=== PATIENT | male | born 1980 | race Caucasian/White ===

== ENCOUNTER 2024-01-16 18:41 | Emergency (ER) | payer MEDICAID ==
[~2024-01-16] VITALS: Ht 193 cm; Wt 150.0 kg
[~2024-01-16 18:41] MED LIST: CEPH-571 PO
[2024-01-16 20:01] LABS: BASOPHILS % (AUTO) 0.5 % (0-1); EOSINOPHILS # (AUTO) 0.4 X10'3 (0-0.9); EOSINOPHILS % (AUTO) 3.9 % (0-6); HEMATOCRIT 41.6 % (42.0-52.0); LYMPHOCYTES % (AUTO) 22.2 % (21-51); MEAN CORPUSCULAR HEMOGLOBIN 30.5 PG (27.0-31.0); MEAN CORPUSCULAR HGB CONC 33.6 g/dL (33.0-36.5); MEAN CORPUSCULAR VOLUME 90.6 FL (78-98); MEAN PLATELET VOLUME 7.7 FL (7.4-10.4); MONOCYTES % (AUTO) 10.7 % (2-12); NEUTROPHILS # (AUTO) 5.8 X10'3 (1.8-7.7); NEUTROPHILS % (AUTO) 62.7 % (42-75); PLATELET COUNT 258 X10'3 (140-440); RED BLOOD COUNT 4.59 X10'6 (4.70-6.10); RED CELL DISTRIBUTION WIDTH 14.2 % (11.5-14.5); WHITE BLOOD COUNT 9.2 X10'3 (4.5-11.0)
[2024-01-16 20:11] LABS: ALBUMIN 3.3 G/DL (3.4-5.0); ANION GAP 8 (8-16); BLOOD UREA NITROGEN 15 MG/DL (7-18); BUN/CREATININE RATIO 13.8 (10.0-20.0); CALCIUM 8.9 MG/DL (8.5-10.1); CHLORIDE 104 MMOL/L (99-107); CREATININE 1.09 MG/DL (0.60-1.10); GLUCOSE 128 MG/DL (70-104); POTASSIUM 3.8 MMOL/L (3.5-5.1); SODIUM 140 MMOL/L (135-145); eCRCL 107 ML/MIN; eGFR 74 ML/MIN
[2024-01-16] MEDS ORDERED: CEPH-585 PO (20:41)
[2024-01-16] MEDS ORDERED: SULF1TAB45 PO (20:41)
[2024-01-16] MEDS: CefTRIAXone 1000mg IM Kit (w/lidocaine diluent) IM ONE (20:50)
[2024-01-16 20:56] VITALS: BP 152/109; PULSE 81; RESP 17; TEMP 98.9; O2SAT 96
== END 2024-01-16 20:58 | disposition home or self-care (01) ==
LOC: ER 18:41
DX: L02.415 Cutaneous abscess of right lower limb (principal); F12.90 Cannabis use, unspecified, uncomplicated; Z79.2 Long term (current) use of antibiotics
CPT/HCPCS: 36415; 80048; 83605; 84145; 85025; 87040; 96372; 99284; J0696

== ENCOUNTER 2024-02-05 21:26 | Emergency (ER) | payer MEDICAID ==
[~2024-02-05] VITALS: Ht 193 cm; Wt 146.9 kg
[~2024-02-05 21:26] MED LIST changes: +CEPH-585 PO
[2024-02-05 21:47] VITALS: O2SAT 95
[2024-02-05] MEDS ORDERED: PRED20TA PO (23:02)
[2024-02-05] MEDS ORDERED: ALBU8HFA INH (23:02)
[2024-02-05] MEDS ORDERED: AZIT250T PO (23:02)
[2024-02-05] MEDS: dexamethasone sod phosphate 10mg/ml inj IM STA (23:33)
[2024-02-05 23:50] VITALS: BP 122/80; PULSE 91; RESP 18; TEMP 98.6
== END 2024-02-05 23:50 | disposition home or self-care (01) ==
LOC: ER 21:26
DX: J20.9 Acute bronchitis, unspecified (principal); R05.9 Cough, unspecified; Z79.2 Long term (current) use of antibiotics; Z79.52 Long term (current) use of systemic steroids
CPT/HCPCS: 71045; 96372; 99283; J1100